=== PATIENT | female | born 1950 | race Caucasian/White ===

== ENCOUNTER 2018-05-21 20:40 | Inpatient (IN) | payer OTHER ==
[2018-05-21] MEDS ORDERED: NA CHLORIDE 0.9% 1,000 ML ONE (20:50)
[2018-05-21] MEDS ORDERED: RSI MEDICATION KIT IV ONE (20:50)
[2018-05-21] MEDS ORDERED: NOREPINEPHRINE 4mg/D5W 250mL 4 MG/250 ML BAG IV ONE (21:34)
--- NOTE | 2018-05-21 21:35 | RAD REPORT ---
EXAM DESCRIPTION: CT - Head C Spine Cap Wo Con - 05/21/2018 9:07 pm TECHNIQUE: Computed axial tomography of the head and cervical spine was obtained. Coronal and sagitt al reconstruction was performed Computed axial tomography of the chest, abdomen and pelvis was obtained. Contrast was not requested. All CT scans are performed using dose optimization technique as appropriate and may include automated exposure control or mA/KV adjustment according to patient size. CLINICAL HISTORY: Head and neck injury with chest and abdominal pain status post fall COMPARISON: 2013 CT chest FINDINGS: An intracranial bleed is not seen. The ventricles are normal in caliber. No acute intracranial abnormality is noted. Fluid within the sinuses/mastoids is not seen. A cervical fracture is not seen. No dislocation is noted. The evaluation of mediastinum, kristen, vessels, solid organs and bowel are limited secondary to the lac k of contrast administration. A mediastinal hematoma is not noted. A pleural effusion is not seen. A lung contusion is not present. The liver,spleen, pancreas, adrenals,kidneys and bladder do not demonstrate a traumatic injury. Moderate to marked centrilobular emphysema. A gallstone is seen. The stomach is markedly distended Old compression fractures involve the L2 and L4 vertebral body. Moderate old compression fracture involves the T7 vertebral body. Moderate compression fracture invol ves the T8 vertebral body. Moderate to marked compression fracture involves the T9 vertebral body Balbuena catheter is present within the bladder. Endotracheal tube has its tip well above the catracho IMPRESSION: 1. No acute intracranial abnormality is seen. 2. A cervical fracture is not visualized. If patient continues have symptoms to suggest intracranial/ spinal cord pathology MRI be recommended 3. No traumatic abnormality involving the chest/abdomen/pelvis. 4. Marked gastric distention 5. Compression fractures involving the T8 and T9 vertebral bodies. Fracture line is not visualized. P erivertebral hematoma is not seen. These probably are not acute. However if the patient has clinical symptoms to suggest these are acute MRI would be recommended
--- NOTE | 2018-05-21 21:39 | RAD REPORT ---
EXAM DESCRIPTION: Fausto Single View05/21/2018 8:56 pm CLINICAL HISTORY: sob COMPARISON: November 2017 FINDINGS: Lungs are moderately hyperaerated. The lungs appear clear of acute infiltrate. The heart is normal size IMPRESSION: No acute abnormalities displayed
[2018-05-21] MEDS ORDERED: PROPOFOL 1,000 MG/100 ML VIAL IV ONE (21:48)
[2018-05-21 22:08] LABS: Blood Gas Oxyhemoglobin 97.4 % (94-97); Blood O2 Saturation 99.4 % (92-98.5)
[2018-05-21 22:34] LABS: Urine Blood 2+ (NEG); Urine Glucose NEGATIVE (NEG); Urine Protein 3+ (NEG); Urine Specific Gravity >1.030 (1.005-1.030)
[2018-05-21 22:45] LABS: Absolute Lymphocytes (CBC) 0.3 K/uL (0.7-4.9); Absolute Monocytes 2.1 K/uL (0.1-1.3); Absolute Neutrophil 15.5 K/uL (1.8-8.0); Basophils % 0.2 % (0-1.3); Eosinophils % 0.1 % (0-4.4); Hematocrit 45.7 % (36.0-45.0); Lymphocytes % 1.6 % (15.3-44.8); MCH 30.7 pg (27.0-35.0); MCV 91.6 fL (80-100); MPV 8.4 fL (7.6-11.3); Monocytes % 11.5 % (3.3-12.3); RBC Red Blood Cell Count 4.99 M/uL (3.86-4.86)
[2018-05-21 22:49] LABS: Protime INR 1.39
[2018-05-21] MEDS ORDERED: METHYLPREDNISOLONE 125 MG INJ ONE (22:54)
[2018-05-21] MEDS ORDERED: LEVALBUTEROL 1.25 MG/3 ML NEB ONE (23:08)
[2018-05-21 23:13] LABS: Albumin 2.8 g/dL (3.4-5.0); Bilirubin Direct 0.7 mg/dL (0-0.2); Bilirubin Total 1.4 mg/dL (0.2-1.0); Protein, Total 5.6 g/dL (6.4-8.2); Troponin (Emerg Dept Use Only) 0.21 ng/mL (0.0-0.045)
[2018-05-21 23:14] LABS: Blood Morphology Comment NOT SEEN (NOT SEEN); Platelet Estimate ADEQ; Urine White Blood Cell Casts OK
[2018-05-21 23:16] LABS: CKMB Creatine Kinase MB 26.2 ng/mL (0.3-3.6)
[2018-05-21] MEDS ORDERED: PIPER/TAZO/NS 3.375gm 3.375 GM/100 ML BAG ONE (23:32)
[2018-05-21] MEDS ORDERED: VANCOMYCIN 1 GM/250 ML BAG ONE (23:32)
--- NOTE | 2018-05-21 23:51 | ER ---
Nurse's Notes [facility] Name: Chica Guerrero Age: 68 yrs Sex: Female : 1950 Arrival Date: 05/21/2018 Time: 20:41 Bed 4 Private MD: Diagnosis: Rhabdomyolysis;Acute respiratory failure;Dehydration;Altered mental status, unspecified;Hypothermia;Hypotension;Sepsis;Wedge compression fracture of T7-T8 vertebra;Wedge compression fracture of T9-T10 vertebra Presentation: 05/21 20:41 Presenting complaint: EMS states: they were toned out for report of pt found down at bb home and altered mental status. Transition of care: patient was not received from another setting of care. Onset of symptoms is unknown. Risk Assessment: Do you want to hurt yourself or someone else? Patient reports no desire to harm self or others. Initial Sepsis Screen: Does the patient meet any 2 criteria? Yes Does the patient have a suspected source of infection? Yes: Other: hypoxia/pneumonia If YES to both, name of provider notified: Forest Marie MD. Care prior to arrival: IV initiated. 20 GA, in the right antecubital area. 20:41 Method Of Arrival: EMS: [facility] 20:41 Acuity: GEORGE 1 Triage Assessment: 20:57 General: Appears unresponsive, pale, cool to touch. Behavior is unresponsive. Pain: bb Unable to use pain scale. Patient is unresponsive. Neuro: Level of Consciousness is unresponsive, Oriented to none. Cardiovascular: Heart tones S1 S2 present. Respiratory: Respiratory effort is shallow, weak, Breath sounds are clear in left upper lobe and left lower lobe Breath sounds are absent in right upper lobe, right middle lobe and right lower lobe. GI: Abdomen is flat. Derm: Skin is dry, Skin is pale, Skin temperature is cold. Historical: - Allergies: 21:10 Unable to obtain; bb - Home Meds: 21:10 flurazepam 30 mg Oral cap 1 cap once daily [Active]; primidone 50 mg Oral tab [Active]; bb prednisone 10 mg Oral tab 1 tab 3 times per day [Active]; alendronate 70 mg oral tab 1 tab once wkly [Active]; - Immunization history:: Adult Immunizations unknown. - Social history:: Smoking status: Patient uses tobacco products, family reports pt smoke a lot.. - Ebola Screening: : Patient negative for fever greater than or equal to 101.5 degrees Fahrenheit, and additional compatible Ebola Virus Disease symptoms. - Family history:: not pertinent. - Hospitalizations: : No recent hospitalization is reported. Screenin:04 Abuse screen: unknown. Nutritional screening: unknown. Tuberculosis screening: unknown. bb Fall Risk Fall in past 12 months (25 points). Secondary diagnosis (15 points) IV access (20 points). Ambulatory Aid- None/Bed Rest/Nurse Assist (0 pts). Gait- Impaired (20 pts.). Mental Status- Overestimates/Forgets Limitations (15 pts.). Total Benito Fall Scale indicates High Risk Score (45 or more points). Fall prevention measures have been instituted. Side Rails Up X 2 Frequent Obs/Assessments Occuring. Assessment: 20:43 General: Appears distressed, Behavior is unresponsive. Pain: Unable to use pain scale. jd3 Patient is unresponsive. Neuro: Level of Consciousness is unresponsive. Cardiovascular: Heart tones S1 S2 present Capillary refill is sluggish Rhythm is regular. 20:43 Respiratory: Airway is patent Respiratory effort is shallow, weak, Respiratory pattern jd3 is symmetrical, Breath sounds are diminished. GI: Abdomen is round non-distended. : No signs and/or symptoms were reported regarding the genitourinary system. EENT: No signs and/or symptoms were reported regarding the EENT system. Derm: Skin is intact, Skin is dry, Skin is pale, Skin temperature is cold. Musculoskeletal: Range of motion: pt responsive. 20:46 Reassessment: Patient and/or family updated on plan of care and expected duration. Pain jd3 level reassessed. ET tube placed by Dr. Marie. 21:00 Reassessment: Patient and/or family updated on plan of care and expected duration. Pain jd3 level reassessed. in CT scan. bear hugger blanket applied to pt. 21:15 Respiratory: Airway is patent pt on vent. Breath sounds are clear bilaterally. jd3 21:15 Reassessment: Patient and/or family updated on plan of care and expected duration. Pain jd3 level reassessed. provider notified of dropping blood pressure, set up for central line placement. 21:30 Reassessment: Patient and/or family updated on plan of care and expected duration. Pain jd3 level reassessed. central line placed by Dr. Marie. 22:00 Reassessment: No changes from previously documented assessment. Patient and/or family jd3 updated on plan of care and expected duration. Pain level reassessed. 22:30 Reassessment: No changes from previously documented assessment. Patient and/or family jd3 updated on plan of care and expected duration. Pain level reassessed. pt resting in bed, on vent, fluids infusing per orders, nurse bedside monitoring vitals. 22:53 Reassessment: hannah Guerrero [phone]. reports wanting to be called before any jd3 transfer or hospitalization. 23:00 Reassessment: No changes from previously documented assessment. Patient and/or family jd3 updated on plan of care and expected duration. Pain level reassessed. 23:30 Reassessment: Patient appears in no apparent distress at this time. Patient and/or jd3 family updated on plan of care and expected duration. Pain level reassessed. pt resting in bed with ET tube in place, on vent, with fluids running as ordered, nurse at bedside monitoring drips and vitals. 05/22 00:00 Reassessment: Patient appears in no apparent distress at this time. No changes from jd3 previously documented assessment. Patient and/or family updated on plan of care and expected duration. Pain level reassessed. 00:30 Reassessment: Patient appears in no apparent distress at this time. No changes from jd3 previously documented assessment. Patient and/or family updated on plan of care and expected duration. Pain level reassessed. 01:00 Reassessment: Patient appears in no apparent distress at this time. No changes from jd3 previously documented assessment. Patient and/or family updated on plan of care and expected duration. Pain level reassessed. pt admitted to ICU room 3. Vital Signs: 05/21 20:43 Pulse Ox 77% on 4 lpm NC; bb 20:43 BP 104 / 61; Pulse 98; Resp 15 A; Temp 95.6; Pulse Ox 96% on ETT vent; Weight 49.9 kg bb (R); 21:22 BP 68 / 56; Pulse 74; Resp 15; Temp 95.2(C); jd3 21:30 BP 101 / 70; Pulse 96; Resp 18 A; Temp 95.2(C); Pulse Ox 94% on ETT vent; jd3 21:45 BP 173 / 63; Pulse 103; Resp 17 A; Temp 94.6(C); Pulse Ox 100% on ETT vent; jd3 22:00 BP 155 / 51; Pulse 108; Resp 16 A; Temp 94(C); Pulse Ox 100% on ETT vent; jd3 22:15 BP 80 / 65; Pulse 97; Resp 18 A; Temp 94.0(C); Pulse Ox 100% on ETT vent; jd3 22:30 BP 95 / 54; Pulse 94; Resp 18 A; Temp 94.8(C); Pulse Ox 100% on ETT vent; jd3 22:35 BP 104 / 53; Pulse 95; Resp 18 A; Temp 95(C); Pulse Ox 100% on ETT vent; jd3 22:45 BP 89 / 56; Pulse 96; Resp 18 A; Temp 95.5(C); Pulse Ox 100% on ETT vent; jd3 23:00 BP 94 / 81; Pulse 98; Resp 18 A; Temp 96.4(C); Pulse Ox 100% on ETT vent; jd3 23:20 BP 82 / 67; Pulse 104; Resp 18 A; Temp 97.5(C); Pulse Ox 100% on ETT vent; jd3 23:30 BP 82 / 63; Pulse 106; Resp 18 A; Temp 97.7(C); Pulse Ox 100% on ETT vent; jd3 23:40 BP 81 / 56; Pulse 108; Resp 18 A; Temp 98.0(C); Pulse Ox 100% on ETT vent; jd3 23:50 BP 108 / 53; Pulse 102; Resp 18 A; Temp 98.6(C); Pulse Ox 100% on ETT vent; jd3 05/22 00:00 BP 110 / 66; Pulse 102; Resp 18 A; Temp 98.6(C); Pulse Ox 100% on ETT vent; jd3 00:30 BP 112 / 63; Pulse 108; Resp 18 A; Temp 100.1(C); Pulse Ox 100% on ETT vent; jd3 05/21 20:43 Dr Marie notified pt's sats dropping respiratory notified for intubation bb [place] Coma Score: 23:51 Eye Response: to pain(2). Verbal Response: incomprehensible(2). Motor Response: rn withdraws from pain(4). Total: 8. ED Course: 20:41 Patient arrived in ED. bb 20:43 Arm band placed on. bb 20:44 Balbuena cath inserted, using sterile technique, 16 Fr., by ED staff, balloon inflated, to bb gravity drainage, urine specimen collected. Patient tolerated well. 20:45 Inserted saline lock: 20 gauge in left antecubital area, using aseptic technique. bb ,using aseptic technique. by Ac Torre RN. 20:46 Patient has correct armband on for positive identification. Bed in low position. Call bb light in reach. Side rails up X2. ekg monitor on. Pulse ox on. NIBP on. Warm blanket given. 20:46 Assisted provider with intubation using 7.5 mm ETT via oral route. ET tube secured at bb 22cm at the teeth. Set up intubation tray. Intubated by Forest Marie MD Placement verified by CXR, CO2 detector w/ + color change, auscultating bilateral breath sounds, Patient tolerated well. 20:51 Forest Marie MD is Attending Physician. rn 20:56 Chest Single View XRAY In Process Unspecified. EDMS 20:57 Triage completed. bb 21:07 CT Traumagram (Head C Spine CAP wo con) In Process Unspecified. EDMS 21:55 Ac Torre, EDWARD is Primary Nurse. jd3 23:17 Notified ED physician of a critical lab result(s). Cl[place] 80, CPK 1334, CKMB 26.2, bb Lactate 2.4. Dr Marie notified. 23:49 Bryan Chavez MD is Hospitalizing Provider. rn 05/22 01:09 Patient admitted, IV remains in place. jd3 Administered Medications: 05/21 20:45 Drug: Lidocaine 100 mg Route: IVP; Site: right antecubital; bb 21:45 Follow up: Response: No adverse reaction bb 20:48 Drug: Etomidate 20 mg Route: IVP; Site: right antecubital; bb 05/22 00:26 Follow up: Response: No adverse reaction jd3 05/21 20:48 Drug: Succinylcholine 100 mg Route: IVP; Site: right antecubital; bb 05/22 00:26 Follow up: Response: No adverse reaction jd3 05/21 20:50 Drug: NS 0.9% 500 ml Route: IV; Rate: bolus; Site: right antecubital; bb 05/22 00:26 Follow up: Response: No adverse reaction; IV Status: Completed infusion j 05/21 21:30 Drug: Levophed (4 mg/250 mL D5W 4 mcg/min Route: IV; Rate: calculated rate; Site: right jd3 femoral; 05/22 00:27 Follow up: Response: No adverse reaction; IV Status: Infusion continued upon admission j 05/21 22:16 Drug: NS 0.9% 1000 ml Route: IV; Rate: 125 ml/hr; Site: right femoral; jd3 05/22 00:27 Follow up: Response: No adverse reaction; IV Status: Order to discontinue infusion j 05/21 22:52 Drug: SOLU-Medrol 125 mg Route: IVP; Site: right femoral; jd3 23:37 Follow up: Response: No adverse reaction jd3 23:18 Drug: Xopenex (3) 1.25 mg {Note: Administered by RT..} Route: Inhalation; j 05/22 00:28 Follow up: Response: No adverse reaction j 05/21 23:36 Drug: Zosyn 3.375 grams Route: IVPB; Infused Over: 60 mins; Site: right femoral; jd3 05/22 00:28 Follow up: IV Status: Infusion continued upon admission jd3 00:20 Drug: D5-1/2 NS with KCl 20 mEq/L 1000 ml Route: IV; Rate: 100 ml/hr; Site: right jd3 femoral; 00:28 Follow up: IV Status: Infusion continued upon admission jd3 00:21 Drug: Aspirin Suppository 300 mg Route: LA; jd3 00:28 Follow up: Response: No adverse reaction jd3 00:26 Drug: Tylenol Suppository 650 mg Route: LA; jd3 00:29 Follow up: Response: No adverse reaction jd3 00:35 Drug: vancoMYCIN 1 grams Route: IVPB; Infused Over: 2 hrs; Site: left antecubital; jd3 00:35 Follow up: Response: No adverse reaction; IV Status: Infusion continued upon admission j Outcome: 05/21 23:50 Decision to Hospitalize by Provider. rn 05/22 01:07 Patient left the ED. jd3 01:07 Admitted to ICU accompanied by nurse, accompanied by tech, via stretcher, room 3, with jd3 oxygen, on monitor, with chart, Report called to Bedside report given to Carmen LEON. 01:07 Condition: stable 01:07 Instructed on the need for admit. Signatures: Dispatcher [employer] Amelia Stern RN RN bb Nieto, Roman, MD MD rn Davies, Jonathon, RN RN jd3 [place]brook, MyKena mw2 Corrections: (The following items were deleted from the chart) 05/21 23:18 20:43 Cardiovascular: Heart tones S1 S2 present Rhythm is regular jd3 jd3 23:23 21:30 Reassessment: central line placed by Dr. Marie. jd3 jd3 : 21:30 Reassessment: Patient and/or family updated on plan of care and expected jd3 duration. Pain level reassessed. jd3 : 21:30 Respiratory: Airway is patent pt on vent. Breath sounds are clear bilaterally. [id number] 23: 21:00 Reassessment: Patient and/or family updated on plan of care and expected jd3 duration. Pain level reassessed. ET tube placed by Dr. Marie. jd3 23:47 22:10 BP 138 / 126; Pulse 102bpm; Resp 18bpm; Pulse Ox 100% ET / Ventilator; Temp jd3 93.9F; mw2 05/22 00:02 05/21 21:00 Reassessment: Patient and/or family updated on plan of care and expected jd3 duration. Pain level reassessed. in CT scan. jd3 05/22 00:02 05/21 21:15 Reassessment: Patient and/or family updated on plan of care and expected jd3 duration. Pain level reassessed. provider notified of dropping blood pressure, set up for central line placement. jd3 05/22 01: 01:00 Reassessment: Patient appears in no apparent distress at this time. No changes jd3 from previously documented assessment. Patient and/or family updated on plan of care and expected duration. Pain level reassessed. jd3
--- NOTE | 2018-05-21 23:52 | EDPHYS ---
Physician Documentation [facility] Name: Chica Guerrero Age: 68 yrs Sex: Female : 1950 Arrival Date: 05/21/2018 Time: 20:41 Bed 4 Private MD: ED Physician Forest Marie HPI: 05/21 23:51 This 68 yrs old Female presents to ER via EMS with complaints of Altered rn Mental Status. 23:51 The patient presents with decreased responsiveness. Onset: The symptoms/episode rn began/occurred at an unknown time. Possible causes: unknown. Current symptoms: In the emergency department the patient's symptoms have worsened. It is unknown whether or not the patient has had similar symptoms in the past. Family and EMS state that she has not been doing well for a few days, + several falls recently, last one today, patient more alert for EMS, but got more altered en route, and difficult to arouse when here. Family reports recent paranoia, falls, weakness, tremors and shuffling gait. Patient reported only back pain to EMS. Found on ground, unable to get up. . Historical: - Allergies: 21:10 Unable to obtain; bb - Home Meds: 21:10 flurazepam 30 mg Oral cap 1 cap once daily [Active]; primidone 50 mg Oral tab [Active]; bb prednisone 10 mg Oral tab 1 tab 3 times per day [Active]; alendronate 70 mg oral tab 1 tab once wkly [Active]; - Immunization history:: Adult Immunizations unknown. - Social history:: Smoking status: Patient uses tobacco products, family reports pt smoke a lot.. - Ebola Screening: : Patient negative for fever greater than or equal to 101.5 degrees Fahrenheit, and additional compatible Ebola Virus Disease symptoms. - Family history:: not pertinent. - Hospitalizations: : No recent hospitalization is reported. ROS: 23:51 Unable to obtain ROS due to altered mental status, obtunded state. rn Exam: 23:51 Constitutional: Thin female, minimally responsive to painful stimuli with rn incomprehensible speech. Head/Face: Normocephalic, atraumatic. Eyes: Pupils 4mm, reactive ENT: dry MM Neck: in ccollar, no midline tenderness Cardiovascular: tachycardic, regular, no murmur Respiratory: coarse breath sounds on left side, diminished and near absent on right side, no contusions or ecchymosis, no crepitus Abdomen/GI: soft, non tender and non-distended Back: No stepoff or deformities Skin: Warm, dry, no evidence of cellulitis. MS/ Extremity: Dimnished pulses in extremities, central pulses present Neuro: Some response to painful stimuli, incomprehensible speech Vital Signs: 20:43 Pulse Ox 77% on 4 lpm NC; bb 20:43 BP 104 / 61; Pulse 98; Resp 15 A; Temp 95.6; Pulse Ox 96% on ETT vent; Weight 49.9 kg bb (R); 21:22 BP 68 / 56; Pulse 74; Resp 15; Temp 95.2(C); jd3 21:30 BP 101 / 70; Pulse 96; Resp 18 A; Temp 95.2(C); Pulse Ox 94% on ETT vent; jd3 21:45 BP 173 / 63; Pulse 103; Resp 17 A; Temp 94.6(C); Pulse Ox 100% on ETT vent; jd3 22:00 BP 155 / 51; Pulse 108; Resp 16 A; Temp 94(C); Pulse Ox 100% on ETT vent; jd3 22:15 BP 80 / 65; Pulse 97; Resp 18 A; Temp 94.0(C); Pulse Ox 100% on ETT vent; jd3 22:30 BP 95 / 54; Pulse 94; Resp 18 A; Temp 94.8(C); Pulse Ox 100% on ETT vent; jd3 22:35 BP 104 / 53; Pulse 95; Resp 18 A; Temp 95(C); Pulse Ox 100% on ETT vent; jd3 22:45 BP 89 / 56; Pulse 96; Resp 18 A; Temp 95.5(C); Pulse Ox 100% on ETT vent; jd3 23:00 BP 94 / 81; Pulse 98; Resp 18 A; Temp 96.4(C); Pulse Ox 100% on ETT vent; jd3 23:20 BP 82 / 67; Pulse 104; Resp 18 A; Temp 97.5(C); Pulse Ox 100% on ETT vent; jd3 23:30 BP 82 / 63; Pulse 106; Resp 18 A; Temp 97.7(C); Pulse Ox 100% on ETT vent; jd3 23:40 BP 81 / 56; Pulse 108; Resp 18 A; Temp 98.0(C); Pulse Ox 100% on ETT vent; jd3 23:50 BP 108 / 53; Pulse 102; Resp 18 A; Temp 98.6(C); Pulse Ox 100% on ETT vent; jd3 05/22 00:00 BP 110 / 66; Pulse 102; Resp 18 A; Temp 98.6(C); Pulse Ox 100% on ETT vent; jd3 00:30 BP 112 / 63; Pulse 108; Resp 18 A; Temp 100.1(C); Pulse Ox 100% on ETT vent; jd3 05/21 20:43 Dr Marie notified pt's sats dropping respiratory notified for intubation bb Denise Coma Score: 23:51 Eye Response: to pain(2). Verbal Response: incomprehensible(2). Motor Response: rn withdraws from pain(4). Total: 8. Procedures: 23:47 Intubation: Ventilated with 100% NRB prior to procedure. 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 Intubated orally using # 4 Nehemias blade with 7.5 mm ETT. was successful on first attempt. Cricoid pressure applied during procedure. Tube secured at right side of mouth measured 22 cm at lip. Placement verified by CXR, CO2 detector with (+) color change, auscultating bilateral breath sounds, O2 saturation after procedure was 90 %. Patient tolerated well. Central Line: the site was prepped with Betadine, in sterile fashion, a triple lumen catheter was inserted, in the right femoral vein, in 1 attempts. placement was verified, by blood return, the site was dressed with Tegaderm, using sterile technique, the patient tolerated the procedure, well. MDM: 20:51 Patient medically screened. 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 Core temp normalizing with active warming. Unclear trigger of event but patient seems to have been laying on floor for some time leading to culmination of findings we are seeing today. . 23:51 Differential Diagnosis: CVA, electrolyte abnormality, hypoglycemia, intracranial bleed, rn pneumonia, sepsis, UTI, volume depletion. Data reviewed: vital signs, nurses notes, lab test result(s), EKG, radiologic studies, CT scan, plain films, and as a result, I will admit patient. Counseling: I had a detailed discussion with the patient and/or guardian regarding: the historical points, exam findings, and any diagnostic results supporting the discharge/admit diagnosis, lab results, radiology results, the need for further work-up and treatment in the hospital. Admission orders: after a detailed discussion of the patient's condition and case, the admit orders are written by me. 05/21 20:52 Order name: ABG; Complete Time: 22:22 05/21 20:52 Order name: Basic Metabolic Panel; Complete Time: 23:39 05/21 20:52 Order name: Blood Culture Adult (2) 05/21 20:52 Order name: CBC with Diff; Complete Time: 23:39 05/21 20:52 Order name: Ckmb; Complete Time: 23:39 05/21 20:52 Order name: CPK; Complete Time: 23:39 05/21 20:52 Order name: Lactate; Complete Time: 23:39 05/21 20:52 Order name: LFT's; Complete Time: 23:39 05/21 20:52 Order name: Lipase; Complete Time: 23:39 05/21 20:52 Order name: Procalcitonin; Complete Time: 23:39 05/21 20:52 Order name: Protime (+inr); Complete Time: 23:04 05/21 20:52 Order name: Ptt, Activated; Complete Time: 23:04 05/21 20:52 Order name: Troponin (emerg Dept Use Only); Complete Time: 23:39 05/21 20:52 Order name: Urine Microscopic Only; Complete Time: 00:33 05/21 20:47 Order name: Chest Single View XRAY; Complete Time: 21:43 em1 05/21 20:52 Order name: Urine Culture 05/21 20:52 Order name: CT Traumagram (Head C Spine CAP wo con); Complete Time: 21:43 05/21 21:27 Order name: Glucose, Ancillary Testing; Complete Time: 21:31 EDIA 05/21 21:31 Order name: Flu; Complete Time: 23:39 rn 05/21 22:30 Order name: Urine Dipstick--Ancillary (enter results); Complete Time: 22:46 em1 05/21 23:14 Order name: CBC Smear Scan; Complete Time: 23:39 EDMS 05/21 20:52 Order name: Accucheck; Complete Time: 21:56 rn 05/21 20:52 Order name: Cardiac monitoring; Complete Time: 21:08 rn 05/21 20:52 Order name: EKG - Nurse/Tech; Complete Time: 21:57 rn 05/21 20:52 Order name: IV Saline Lock - Large Bore; Complete Time: 21:08 rn 05/21 20:52 Order name: Labs collected and sent; Complete Time: 22:45 rn 05/21 20:52 Order name: O2 Per Protocol; Complete Time: 21:08 rn 05/21 20:52 Order name: O2 Sat Monitoring; Complete Time: 21:07 rn 05/21 20:52 Order name: Urine Dipstick-Ancillary (obtain specimen); Complete Time: 21:07 05/22 00:04 Order name: CONS Physician Consult EDIA Administered Medications: 20:45 Drug: Lidocaine 100 mg Route: IVP; Site: right antecubital; 21:45 Follow up: Response: No adverse reaction 20:48 Drug: Etomidate 20 mg Route: IVP; Site: right antecubital; 05/22 00:26 Follow up: Response: No adverse reaction [facility] 05/21 20:48 Drug: Succinylcholine 100 mg Route: IVP; Site: right antecubital; 05/22 00:26 Follow up: Response: No adverse reaction [facility] 05/21 20:50 Drug: NS 0.9% 500 ml Route: IV; Rate: bolus; Site: right antecubital; 05/22 00:26 Follow up: Response: No adverse reaction; IV Status: Completed infusion [facility] 05/21 21:30 Drug: Levophed (4 mg/250 mL D5W 4 mcg/min Route: IV; Rate: calculated rate; Site: right jd3 femoral; 05/22 00:27 Follow up: Response: No adverse reaction; IV Status: Infusion continued upon admission [facility] 05/21 22:16 Drug: NS 0.9% 1000 ml Route: IV; Rate: 125 ml/hr; Site: right femoral; jd3 05/22 00:27 Follow up: Response: No adverse reaction; IV Status: Order to discontinue infusion jd3 05/21 22:52 Drug: SOLU-Medrol 125 mg Route: IVP; Site: right femoral; jd3 23:37 Follow up: Response: No adverse reaction jd3 23:18 Drug: Xopenex (3) 1.25 mg {Note: Administered by RT..} Route: Inhalation; jd3 05/22 00:28 Follow up: Response: No adverse reaction jd3 05/21 23:36 Drug: Zosyn 3.375 grams Route: IVPB; Infused Over: 60 mins; Site: right femoral; jd3 05/22 00:28 Follow up: IV Status: Infusion continued upon admission jd3 00:20 Drug: D5-1/2 NS with KCl 20 mEq/L 1000 ml Route: IV; Rate: 100 ml/hr; Site: right jd3 femoral; 00:28 Follow up: IV Status: Infusion continued upon admission jd3 00:21 Drug: Aspirin Suppository 300 mg Route: VT; jd3 00:28 Follow up: Response: No adverse reaction jd3 00:26 Drug: Tylenol Suppository 650 mg Route: VT; jd3 00:29 Follow up: Response: No adverse reaction jd3 00:35 Drug: vancoMYCIN 1 grams Route: IVPB; Infused Over: 2 hrs; Site: left antecubital; jd3 00:35 Follow up: Response: No adverse reaction; IV Status: Infusion continued upon admission jd3 Disposition: 05/21 23:47 Critical Care:. rn Disposition: 05/21/18 23:50 Hospitalization ordered by Bryan Chavez for Inpatient Admission. Preliminary diagnosis are Rhabdomyolysis, Acute respiratory failure, Dehydration, Altered mental status, unspecified, Hypothermia, Hypotension, Sepsis, Wedge compression fracture of T7-T8 vertebra, Wedge compression fracture of T9-T10 vertebra. - Bed requested for Intensive Care Unit. - Status is Inpatient Admission. jd3 - Condition is Serious. - Problem is new. - Symptoms have improved. UTI on Admission? No Critical care time excluding procedures: 23:47 Critical care time: Bedside Care: 55 minutes, Consultation: 5 minutes, Family rn Intervention: 5 minutes. Total time: 65 minutes Signatures: Dispatcher [employer] Amelia Stern RN RN Forest Galvan MD MD rn Martinez, Eric em1 Ac Torre RN RN jd3 Corrections: (The following items were deleted from the chart) 05/22 00:19 05/21 23:50 Hospitalization Ordered by Bryan Chavez MD for Inpatient Admission. em1 Preliminary diagnosis is Rhabdomyolysis; Acute respiratory failure; Dehydration; Altered mental status, unspecified; Hypothermia; Hypotension; Sepsis. Bed requested for Intensive Care Unit. Status is Inpatient Admission. Condition is Serious. Problem is new. Symptoms have improved. UTI on Admission? No. 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 Preliminary diagnosis is Rhabdomyolysis; Acute respiratory failure; Dehydration; Altered mental status, unspecified; Hypothermia; Hypotension; Sepsis. Bed requested for Intensive Care Unit. Status is Inpatient Admission. Condition is Serious. Problem is new. Symptoms have improved. UTI on Admission? No. em1 01:07 00:34 05/21/2018 23:50 Hospitalization Ordered by Bryan Chavez MD for Inpatient jd3 Admission. Preliminary diagnosis is Rhabdomyolysis; Acute respiratory failure; Dehydration; Altered mental status, unspecified; Hypothermia; Hypotension; Sepsis; Wedge compression fracture of T7-T8 vertebra; Wedge compression fracture of T9-T10 vertebra. Bed requested for Intensive Care Unit. Status is Inpatient Admission. Condition is Serious. Problem is new. Symptoms have improved. UTI on Admission? No. rn
[2018-05-22] MEDS ORDERED: ASPIRIN 600 MG/SUPP PR ONE ×2 (00:14→00:18)
[2018-05-22] MEDS ORDERED: D5.45NS W/KCL 20MEQ 1,000 ML IV ONE (00:15)
[2018-05-22] MEDS ORDERED: ACETAMINOPHEN 650MG/RECT SUPP PR ONE (00:20)
[2018-05-22 00:25] LABS: Urine Bacteria <20 /HPF (<20)
[2018-05-22 00:26] LABS: Urine Culture Reflex Order NOT NEEDED
[2018-05-22] MEDS ORDERED: PIPER/TAZO/NS 2.25gm 2.25 GM/50 ML BAG IVPB SCH (00:30)
[2018-05-22] MEDS ORDERED: NOREPINEPHRINE 4mg/D5W 250mL 4 MG/250 ML BAG IV ONE (00:58)
[2018-05-22] MEDS ORDERED: PROPOFOL 1,000 MG/100 ML VIAL IV PRN (01:07)
[2018-05-22] MEDS ORDERED: ONDANSETRON 4 MG/2 ML VIAL IV PRN (01:07)
[2018-05-22] MEDS ORDERED: D5.45NS W/KCL 20MEQ 1,000 ML IV SCH (01:07)
[2018-05-22] MEDS: PIPER/TAZO/NS 2.25gm 2.25 GM/50 ML BAG IVPB SCH ×5 (01:43→23:15)
[2018-05-22] MEDS ORDERED: VANCOMYCIN 1GM/D5W 1 GM/200 ML BAG IV ONE (02:00)
[2018-05-22 02:42] LABS: CKMB Creatine Kinase MB 17.1 ng/mL (0.3-3.6); Troponin I 0.24 ng/mL (0.0-0.045)
[2018-05-22] MEDS: KCL 20 MEQ/100 mL IVPB 20 MEQ/100 ML BAG IV SCH ×2 (04:22→05:31)
[2018-05-22 06:31] LABS: CKMB Creatine Kinase MB 8.8 ng/mL (0.3-3.6); Troponin I 0.16 ng/mL (0.0-0.045)
--- NOTE | 2018-05-22 07:15 | EKG ---
Test Date: 2018-05-21 Test Time: 23:28:30 Refrigeration Mechanic: AURORA MEASUREMENT RESULTS: Intervals: Rate: 105 AK: 116 QRSD: 88 QT: 358 QTc: 473 [place]: P: 82 AK: 116 QRS: 85 T: 76 INTERPRETIVE STATEMENTS: Sinus tachycardia Right atrial enlargement Borderline ECG Compared to ECG 05/21/2018 21:12:53 Sinus rhythm no longer present Electronically Signed On 05-22-18 07:14:17 MIX TECHNICIAN by Aleksander Shin
--- NOTE | 2018-05-22 07:15 | EKG ---
Test Date: 2018-05-21 Test Time: 21:12:53 Informatics Pharmacist: EAGLE MEASUREMENT RESULTS: Intervals: Rate: 80 RI: 122 QRSD: 106 QT: 402 QTc: 463 [place]: P: 84 RI: 122 QRS: 86 T: 82 INTERPRETIVE STATEMENTS: Normal sinus rhythm Biatrial enlargement Abnormal ECG No previous ECG available for comparison Electronically Signed On 05-22-18 07:14:21 DRY KILN OPERATOR HELPER by Aleksander Shin
[2018-05-22] MEDS: FENTANYL CITR 100 MCG/2 ML IV PRN ×3 (07:49→21:25)
[2018-05-22] MEDS ORDERED: NOREPINEPHRINE 4 MG in D5W 250 ML IV PRN (08:27)
[2018-05-22] MEDS: NA CHLORIDE 0.9% 250 ML IV PRN ×2 (08:40→17:53)
[2018-05-22] MEDS: FAMOTIDINE 20 MG/2 ML VIAL IV SCH ×2 (08:42→21:16)
[2018-05-22] MEDS: NA CHLORIDE 0.9% 1,000 ML ONE ×2 (08:43→08:45)
[2018-05-22] MEDS ORDERED: D5 0.9 NS 1,000 ML IV SCH (10:00)
[2018-05-22] MEDS ORDERED: NA CHLORIDE 0.9% 1,000 ML IV SCH (10:00)
[2018-05-22 10:07] LABS: Absolute Lymphocytes (CBC) 0.6 K/uL (0.7-4.9); Absolute Monocytes 1.8 K/uL (0.1-1.3); Absolute Neutrophil 10.6 K/uL (1.8-8.0); Basophils % 0.2 % (0-1.3); Hematocrit 42.5 % (36.0-45.0); Lymphocytes % 4.3 % (15.3-44.8); MCH 30.9 pg (27.0-35.0); MCV 90.4 fL (80-100); MPV 8.8 fL (7.6-11.3); Monocytes % 14.1 % (3.3-12.3)
[2018-05-22 10:17] LABS: Potassium 3.7 mmol/L (3.5-5.1)
[2018-05-22 10:26] LABS: Uric Acid 8.9 mg/dL (2.6-6.0)
[2018-05-22 11:36] LABS: Urine Appearance TURBID; Urine Blood 2+ (NEG); Urine Color DK YELLOW; Urine Glucose NEGATIVE (NEG); Urine Protein 1+ (NEG); Urine Specific Gravity 1.025 (1.005-1.030); Urine pH 5.5 (5.0-7.0)
[2018-05-22 11:45] LABS: Urine Bilirubin NEGATIVE (NEG)
[2018-05-22 11:46] LABS: Urine Microscopic Reflex ORDER UMIC
[2018-05-22] MEDS ORDERED: ETOMIDATE 20 MG/10 ML VIAL IV ONE (11:57)
[2018-05-22] MEDS ORDERED: SUCCINYLCHOLINE 20 MG/ML (10 ML) IV ONE (11:57)
[2018-05-22 12:04] LABS: Urine Bacteria 20-50 /HPF (<20)
[2018-05-22 12:07] LABS: Urine Culture Reflex Order REFLEXED
[2018-05-22] MEDS ORDERED: DOPAMINE 400 MG/250ML D5W PREMIX IV ONE (12:17)
[2018-05-22] MEDS ORDERED: SODIUM CHL 0.9% 1000 ML BAG IV ONE (12:17)
[2018-05-22] MEDS ORDERED: KCL 20 MEQ/100 mL IVPB 20 MEQ/100 ML BAG IV SCH (13:00)
--- NOTE | 2018-05-22 13:55 | CON ---
Date of Consultation: 05/22/2018 Reason For Consultation: Elevated BUN and creatinine, hyponatremia, fluid management. History Of Present Illness: This is a pleasant 68-year-old female. All of the information has been obtained from the record, as the patient is being intubated. The patient's brother is by the bedside , the son is not by the bedside. The patient is known to have history of COPD, osteoporosis, tremor, no seizure. The patient apparently found with recurrent fall and altered mental status, for that re leoncion approached to the emergency room. In the emergency room found to have low blood pressure and sh ock with hyponatremia. For that reason, we have been consulted. The patient was started on Levophed , then was weaned off, receive a couple of bolus. Currently blood pressure maintained on 90 with Lev ophed of 2 mcg. As per the brother, the patient is not taking any nonsteroidal, no IV contrast, no s teroid dependent, not on home oxygen. At home, the patient had been on alendronate and seizure medication for her tremor. Past Medical History: Include, 1.Hypertension. 2.Osteoporosis. 3.COPD. Allergy: None obtainable. Family History: Positive for hypertension. Surgical History: None obtainable. Home Medications: Include, 1.Alendronate. 2.Mysoline. 3.Breathing treatment. Current Medications: In the hospital include Zosyn, fentanyl, sedation medication with vancomycin. Review of Systems: Not obtainable. Physical Examination: Vital Signs: Blood pressure 97/67, pulse of 79, afebrile. Chest: Clear to auscultation. Heart: S1, S2. Regular. Abdomen: Soft, nontender. Extremities: No edema. Laboratory Data: WBC 13, H and H 14.5/42.5, platelets 242. Sodium 123, potassium of 3, bicarb 32, chloride 80, BUN 51, creatinine 1.3, GFR of 41, calcium 7.3, C K 1334, albumin 2.8. Cortisol level is still pending. CK-MB of 26. Imaging Data: CT of abdomen and pelvis with spine show compression fractures, hydronephrosis has bee n ruled out. Reviewing the record for the patient back in November, kidney function was within normal limits and normal sodium at 136. Assessment And Plan: 1.Acute kidney injury secondary to rhabdo/poor perfusion acute tubular necrosis/toxic acute tubular necrosis. Obstruction has been ruled out. 2.I am going to go ahead and start the patient on IV hydration, and we will monitor the patient clos pavithra. We will start the patient on normal saline at 100 p.o. I am going to go ahead and send for sta t chemistry, and we will send for renal ultrasound, and we will continue close monitoring for the I's and O's. 3.I am going to discontinue alendronate, as it can contribute to her acute and chronic kidney diseas e. 4.Hyponatremia secondary to depletional, symptomatic with fold. I am going to start the patient on normal saline. We will repeat the lab, and we will adjust depending on that. 5.Urosepsis with septic shock. The patient was started on vanco and Zosyn. We will follow up cultu re. 6.Altered mental status, possible secondary to seizure/hyponatremia. We are going to start the reji ent on normal saline at 100 mL per hour. If her kidney function/hyponatremia did not correct at that time, we will decide about 3%, it will be monitored. 7.Rhabdomyolysis secondary to seizure. I do not see any need for sodium bicarb drip for the time be ing. We will continue with hydration. 8.Hypokalemia. We will supplement. Thank you Dr. Parada for allowing us to participate in the care of your patient. Time spent, 65 minutes. RAMANDEEP Voice ID: [id number] Report ID: [id number]
[2018-05-22] MEDS: LORazepam 2 MG/ML VIAL IV PRN ×2 (14:25→23:16)
[2018-05-22] MEDS: JEVITY 1.2 CAL LIQUID 1,000 ML BOT FT SCH (14:40)
[2018-05-22 14:50] LABS: Potassium 3.5 mmol/L (3.5-5.1); Uric Acid 8.7 mg/dL (2.6-6.0)
[2018-05-22 15:45] LABS: Urine Appearance CLOUDY; Urine Blood 2+ (NEG); Urine Color YELLOW; Urine Glucose NEGATIVE (NEG); Urine Protein 1+ (NEG); Urine Specific Gravity 1.025 (1.005-1.030)
[2018-05-22 15:47] LABS: Urine Bilirubin NEG (NEG)
[2018-05-22 15:48] LABS: Urine Microscopic Reflex ORDER UMIC
[2018-05-22] MEDS: NA CHLORIDE 0.9% 1,000 ML IV SCH ×2 (16:00→17:51)
[2018-05-22 16:03] LABS: Urine Bacteria 20-50 /HPF (<20); Urine Culture Reflex Order NOT NEEDED
--- NOTE | 2018-05-22 18:55 | RAD REPORT ---
EXAM DESCRIPTION: US - Renal Ultrasound-Complete - 05/22/2018 6:37 pm CLINICAL HISTORY: SABRINA COMPARISON: Head C Spine Cap Wo Con dated 05/21/2018 FINDINGS: Both kidneys are echogenic. The right kidney measures 11.2 x 4.2 x 3.5 cm. No hydronephrosis. The left kidney measures 12.2 x 4.3 x 4.0 cm. Solid mass lesion suspected superior pole left kidney m easuring 3.5 x 3.5 cm. No hydronephrosis. The urinary bladder is incompletely distended without gross abnormality seen. Cholelithiasis is noted . IMPRESSION: A solid mass is suspected superior pole left kidney (3.5 x 3.5 cm) suspicious for carcin chun. Echogenic kidneys noted likely indicating underlying medical renal disease.
[2018-05-23 01:02] LABS: Urine Appearance CLEAR; Urine Bilirubin NEGATIVE (NEG); Urine Blood TRACE (NEG); Urine Color YELLOW; Urine Glucose 1+ (NEG); Urine Protein TRACE (NEG); Urine Specific Gravity 1.025 (1.005-1.030)
[2018-05-23 01:06] LABS: Urine Microscopic Reflex ORDER UMIC
[2018-05-23 01:34] LABS: Potassium 3.1 mmol/L (3.5-5.1)
[2018-05-23 01:42] LABS: Urine Bacteria <20 /HPF (<20); Urine Culture Reflex Order NOT NEEDED; Urine RBC <5 /HPF (NONE SEEN)
--- NOTE | 2018-05-23 04:24 | HP ---
Date of Admission: 05/21/2018 Chief Complaint: Unresponsive state. History Of Present Illness: A 68-year-old female, according to the family fell down a few days prior to admission. The patient however was not able to be contacted, so family members went to her home and found her unresponsive. She was brought to the emergency room where she was found to have respir atory failure and hypotension. The patient was intubated and transferred to ICU. No additional hist ory is available. The patient is known to me. She is known to have COPD secondary to smoking. Physical Examination: General: Revealed a comatose 68-year-old female, unresponsive, on ventilator. Vital Signs: Blood p ressure of 90/60, on Levophed; pulse 112, regular. HEENT: Pupils midsize. Neck: No JVD. Chest: Scattered wheezes. Heart: Mild tachycardia. Abdomen: Soft. Extremities: No edema. Laboratory Data: Admitting white count 17.9, hemoglobin 15.3. Blood gas; pH 7.25, pCO2 67. Sodium 123, potassium 3.0, BUN 51, creatinine 1.3. CPK 1334, troponin 0.21. [facility] scan of the abdomen, chest, neck, and head showed evidence of compression fract ure, probably old; otherwise, no acute injuries. Assessment: 1.Unresponsive state. 2.Respiratory failure. 3.Hypotension. 4.Possible septic state. 5.Renal failure. 6.Possible rhabdomyolysis, causing renal failure. Plan: IV fluids. Ventilatory support. Pulmonary and nephrology consultations as done. Continue IV antibiotics, started in the emergency room. LOLI/MEREDITH Voice ID: [id number]
[2018-05-23 05:38] LABS: Absolute Lymphocytes (CBC) 0.7 K/uL (0.7-4.9); Absolute Monocytes 1.8 K/uL (0.1-1.3); Absolute Neutrophil 9.6 K/uL (1.8-8.0); Arterial Blood Carboxyhemoglob 1.2 % (0-1.5); Basophils % 0.2 % (0-1.3); Blood Gas Oxyhemoglobin 94.1 % (94-97); Blood O2 Saturation 95.8 % (92-98.5); Hematocrit 39.3 % (36.0-45.0); Lymphocytes % 5.9 % (15.3-44.8); MCV 90.4 fL (80-100); MPV 8.9 fL (7.6-11.3); Monocytes % 14.9 % (3.3-12.3); RBC Red Blood Cell Count 4.35 M/uL (3.86-4.86)
[2018-05-23] MEDS: PIPER/TAZO/NS 2.25gm 2.25 GM/50 ML BAG IVPB SCH (06:20)
[2018-05-23] MEDS: NA CHLORIDE 0.9% 1,000 ML IV SCH ×3 (06:20→17:07)
[2018-05-23 06:34] LABS: Albumin 2.2 g/dL (3.4-5.0); Magnesium 2.2 mg/dL (1.8-2.4); Potassium 3.2 mmol/L (3.5-5.1); Uric Acid 5.2 mg/dL (2.6-6.0)
[2018-05-23] MEDS: FENTANYL CITR 100 MCG/2 ML IV PRN ×3 (06:54→20:46)
--- NOTE | 2018-05-23 07:39 | P.CNS ---
Date of Consult: 05/22/18 Reason for Consult: Respiratory failure patient on a ventilator Chief Complaint: Unresponsive History of Present Illness: Patient is 68 years of age no history available she was found unresponsive admitted currently on a ventilator unresponsive patient had rhabdomyolysis in compression fractures patient was also hypotensive renal insufficiency Allergies Unable to Assess Allergy (Unverified 05/22/18 00:26) Home Medications: Albuterol Sulfate [Albuterol Sulfate 0.083% Neb Soln] 2.5 mg IH QID 05/22/18 Alendronate Sodium [Fosamax] 70 mg PO EVERY 7TH DAY 05/22/18 Primidone [Mysoline *] 100 mg PO BID 05/22/18 - Past Medical/Surgical History -: Osteoporosis -: Possible essential tremors Review of Systems is unable to be obtained Physical Examination Temp Pulse Resp BP Pulse Ox 98.8 F 93 H 14 92/65 99 05/23/18 06:00 05/23/18 07:00 05/23/18 07:00 05/23/18 07:00 05/23/18 07:00 General: Unresponsive HEENT: Other (Patient has a neck collar) Respiratory: Clear to auscultation bilaterally, Diminished Cardiovascular: No edema, Regular rate/rhythm, Normal S1 S2 Gastrointestinal: Normal bowel sounds, Soft and benign - Problems (1) Respiratory failure Current Visit: Yes Status: Acute Plan: Patient is 68 years of age admitted with hypotension shock respiratory failure renal failure rhabdomyolysis she was found to be hypernatremic hypokalemic renal insufficiency elevated white count with a respiratory acidosis no evidence of infection in the urine no neck fracture she did have a compression fracture of T8 and T9 blood cultures so far negative continue with supportive therapy fluid boluses antibiotics possible wean and extubate then settings reviewed patient is on minimal oxygen Qualifiers: Chronicity: acute
[2018-05-23] MEDS: FAMOTIDINE 20 MG/2 ML VIAL IV SCH ×2 (08:25→20:47)
[2018-05-23 08:37] LABS: Hematocrit 39.2 % (36.0-45.0); MCH 31.2 pg (27.0-35.0); MCV 90.6 fL (80-100); MPV 8.6 fL (7.6-11.3); RBC Red Blood Cell Count 4.33 M/uL (3.86-4.86)
[2018-05-23] MEDS: LORazepam 2 MG/ML VIAL IV PRN ×2 (08:59→21:26)
[2018-05-23 09:07] LABS: Albumin 2.2 g/dL (3.4-5.0); Bilirubin Total 0.4 mg/dL (0.2-1.0); Potassium 3.1 mmol/L (3.5-5.1); Protein, Total 4.9 g/dL (6.4-8.2); Thyroid Stimulating Hormone 1.01 uIU/mL (0.360-3.740)
[2018-05-23] MEDS ORDERED: POTASSIUM PHOS IN 0.9 % NACL 15 MMOL/250 ML BAG IV ONE (10:26)
[2018-05-23 10:33] LABS: Magnesium 2.2 mg/dL (1.8-2.4)
[2018-05-23 10:52] LABS: Blood Morphology Comment NOT SEEN (NOT SEEN); Platelet Estimate ADEQ; Urine White Blood Cell Casts OK
[2018-05-23] MEDS: KCL 20 MEQ/100 mL IVPB 20 MEQ/100 ML BAG IV SCH ×2 (11:39→13:00)
[2018-05-23] MEDS: IPRATROPIUM BROM 0.5MG/2.5ML NEB SCH ×2 (13:16→19:46)
--- NOTE | 2018-05-23 13:46 | ECHO ---
HEIGHT: 5 ft 1 in WEIGHT: 105 lb 0 oz DATE OF STUDY: 05/23/[address]: Vlad Rodriguez MD 2-DIMENSIONAL: YES M.MODE: YES DOPPLER: YES COLOR FLOW: YES TDS: NO PORTABLE: YES DEFINITY: NO BUBBLE STUDY: NO DIAGNOSIS: RESPIRATORY FAILURE, SHOCK CARDIAC HISTORY: CATHERIZATION: NO SURGERY: NO PROSTHETIC VALVE: NO PACEMAKER: NO MEASUREMENTS (cm) DIASTOLIC (NORMALS) SYSTOLIC (NORMALS) IVSd 0.7 (0.6-1.2) LA Diam (1.9-4.0) LVEF 59% LVIDd 2.6 (3.5-5.7) LVIDs 1.9 (2.0-3.5) %FS 30% LVPWd 0.8 (0.6-1.2) Ao Diam 2.2 (2.0-3.7) 2 DIMENSIONAL ASSESSMENT: RIGHT ATRIUM: DILATED LEFT ATRIUM: NORMAL RIGHT VENTRICLE: DILATED LEFT VENTRICLE: NORMAL TRICUSPID VALVE: NORMAL MITRAL VALVE: NORMAL PULMONIC VALVE: NORMAL AORTIC VALVE: NORMAL PERICARDIAL EFFUSION: NONE AORTIC ROOT: NORMAL LEFT VENTRICULAR WALL MOTION: PARADOXICAL SEPTAL MOTION SEEN WITH RIGHT VENTRICULAR PRESSURE OVERLOAD. DOPPLER/COLOR FLOW: MILD TO MODERATE TRICUPSID REGURGITATION. MILD PULMONARY HYPERTENSION. ESTIMATED RIGHT VENTRICULAR SYSTOLIC PRESSURE 48mmHg. COMMENTS: NORMAL LEFT VENTRICULAR EJECTION FRACTION. DILATED RIGHT ATRIUM AND RIGHT VENTRICLE. PARADOXICAL SEPTAL MOTION. MILD TO MODERATE TRICUPSID REGURGITATION. MILD PULMONARY HYPERTENSION. TECHNOLOGIST: Regina WALDRON
[2018-05-23] MEDS ORDERED: VANCOMYCIN 0.75 GM in NA CHLORIDE 0.9% 250 ML IV SCH (14:00)
[2018-05-23] MEDS: PIPER/TAZO/NS 4.5gm 4.5 GM/100 ML BAG IVPB SCH (17:05)
[2018-05-23] MEDS: ARFORMOTEROL TARTRATE 15 MCG/2 ML VIAL.NEB NEB SCH (19:46)
[2018-05-23] MEDS: JEVITY 1.2 CAL LIQUID 1,000 ML BOT FT SCH (20:47)
[2018-05-23] MEDS ORDERED: NA CHLORIDE 0.9% 500 ML IV SCH (21:00)
[2018-05-24] MEDS: PIPER/TAZO/NS 4.5gm 4.5 GM/100 ML BAG IVPB SCH ×3 (01:19→17:19)
[2018-05-24] MEDS: NA CHLORIDE 0.9% 1,000 ML IV SCH ×2 (01:20→08:00)
--- NOTE | 2018-05-24 01:43 | PN ---
Date of Progress Note: 05/23/2018 Subjective: The patient was admitted with altered mental status, rhabdo, acute kidney injury, hypona tremia. The patient found to have hypotension with depletional hyponatremia. The patient was starte d on IV hydration, weaned from the pressor yesterday. Physical Examination: Vital Signs: Blood pressure of 92/61, pulse of 87. The patient had improving urine output, had pick ed up to 700. Chest: Clear to auscultation. Heart: S1, S2. Regular. Abdomen: Soft, nontender. Extremities: No edema. The patient is still on vent. Laboratory Data: WBC 13.3, H and H 13.5/39.2, platelet 197. Sodium 131, potassium 3.2, bicarb 29, B UN 52, creatinine down to 1.1. Glucose still elevated. Calcium 7.3, phosphorous of 1. Magnesium of 2.2. Cortisol level 117. TSH of 1. Urinalysis; specific gravity of 1.025, wbc of 10, urine sodium of 10, urine potassium of 9. Current Medications: The patient on normal saline at 100 per hour, Zosyn 2.25, vancomycin 1 g. Kisha tion ipratropium, Pepcid. Assessment And Plan: 1.Acute kidney injury secondary to prerenal/toxic acute tubular necrosis/rhabdomyolysis on recovery, nonoliguric. We will continue hydration. I am going to give the patient another normal saline bolu s and we will follow up. 2.Hypertension, currently hypotension. We will hold on any blood pressure medication. 3.Rhabdomyolysis. Continue hydration. We will bolus the patient. 4.Hypomagnesemia, hypokalemia. Continue supplement. 5.Septic shock. Continue current antibiotic. I will adjust the Zosyn. We will follow up vancomyci n trough. Culture still negative. 6.Renal mass. I do not think currently significant to work on it. We will continue to monitor the patient. 7.Respiratory failure. Continue current supportive care. We will follow up with Pulmonary. 8.Altered mental status. We will follow up with the primary. SOSA/MODL Voice ID: [id number] Report ID: [id number]
[2018-05-24] MEDS: IPRATROPIUM BROM 0.5MG/2.5ML NEB SCH ×4 (01:55→19:20)
--- NOTE | 2018-05-24 02:48 | PN ---
The patient generally is doing better. Her WBC count has come down. Her blood pressure still low an d kidney function is slightly better. The patient when seen this morning was under the effect of sed ation. However, according to the nurse, she was moving all her extremities. I spoke to the family m madaier today and explained the clinical situation and progress. LOLI/MEREDITH Voice ID: [id number] Report ID: [id number]
[2018-05-24] MEDS: LORazepam 2 MG/ML VIAL IV PRN ×2 (03:46→22:02)
[2018-05-24 05:54] LABS: Albumin 2.1 g/dL (3.4-5.0); BUN Blood Urea Nitrogen 18 mg/dL (7-18); Bicarbonate 34 mmol/L (21-32); Glucose Level 127 mg/dL (74-106); Magnesium 2.1 mg/dL (1.8-2.4); Phosphorus 1.1 mg/dL (2.5-4.9); Potassium 3.3 mmol/L (3.5-5.1); Sodium Level 139 mmol/L (136-145)
[2018-05-24] MEDS: ARFORMOTEROL TARTRATE 15 MCG/2 ML VIAL.NEB NEB SCH ×2 (07:20→19:20)
[2018-05-24] MEDS: FAMOTIDINE 20 MG/2 ML VIAL IV SCH ×2 (08:12→20:18)
[2018-05-24] MEDS ORDERED: POTASSIUM 25 MEQ EFFERV TAB PO ONE (10:15)
--- NOTE | 2018-05-24 10:57 | P.PN ---
Subjective Date of Service: 05/24/18 Chief Complaint: Unresponsive Subjective: No new changes pt who was admitted for AMS, Hypotensive and SABRINA with hypokalemia and hyponatremia responded to IVF found to have Lt renal mass, suspicious for malignancy still intubated K 3.3 , phos 1.0 Will give 30mew of K phos monitor electrolytes and Mg Mg ok , corrected Ca ok Physical Examination - Vital Signs Temperature: 98.3 F Blood Pressure: 129/65 Pulse: 92 Respirations: 16 Pulse Ox (%): 99 - Physical Exam General: Other (Intubated ) HEENT: Atraumatic Neck: Supple Respiratory: Clear to auscultation bilaterally, Normal air movement Cardiovascular: No edema, Regular rate/rhythm, Normal S1 S2 Gastrointestinal: Normal bowel sounds Integumentary: No rashes - Studies Microbiology Data (last 24 hrs): 05/21/18 22:25 Catheterized Urine [place] Count - Final <10,000 CFU/ML. 05/21/18 22:25 Catheterized Urine - Final Assessment And Plan - Current Problems (Diagnosis) (1) SABRINA (acute kidney injury) Current Visit: Yes Status: Acute (2) Hyponatremia Current Visit: Yes Status: Acute (3) Hypokalemia Current Visit: Yes Status: Acute - Plan 1.Acute kidney injury secondary to prerenal azotemia Resolved on IVF Renal US: no hydro 2. Lt renal mass no previous hx US: 3.5X3.5 lt renal solid lesion , suspicious for malignancy not mentioned in CT , discussed with radiologist , as CT study was without contrast it was hard to appreciate any lesion on CT will get abdominal MRI with gadolinium or abdominal/pelvic CT with contrast once pt is extubated and more stable 3. hypokaleima likely depletioan +/- reffeding syndro will give K phos Cont to monitor 4. hypophospahtemia likely depletioan +/- reffeding syndro +/- resp alkalosis will give K phos Mg WNL 5. hyponatremia resolved depletional 6. Urosepsis with septic shock. The patient was started on vanco and Zosyn. We will follow up culture. 7. AMS head Ct -ve Cont Abx
[2018-05-24] MEDS: POTASSIUM PHOS IN 0.9 % NACL 15 MMOL/250 ML BAG IV SCH ×2 (11:04→17:19)
--- NOTE | 2018-05-24 12:35 | P.PN ---
Subjective Date of Service: 05/24/18 Chief Complaint: Unresponsive Subjective: Improving (Patient's condition is stable she was weaned of Levophed tolerating tube feeds) Review of Systems is unable to be obtained Physical Examination - Vital Signs Temperature: 98.3 F Blood Pressure: 143/84 Pulse: 99 Respirations: 18 Pulse Ox (%): 100 - Physical Exam General: Unresponsive Neck: Supple Respiratory: Clear to auscultation bilaterally Cardiovascular: No edema, Normal S1 S2 Gastrointestinal: Normal bowel sounds, Soft and benign - Studies Microbiology Data (last 24 hrs): 05/21/18 22:25 Catheterized Urine [place] Count - Final <10,000 CFU/ML. 05/21/18 22:25 Catheterized Urine - Final Assessment & Plan - Problems (Diagnosis) (1) Respiratory failure Current Visit: Yes Status: Acute Plan: Patient is 68 years of age admitted with respiratory failure improving not responding labs reviewed unremarkable so far no evidence of infection admission chest x-ray was clear of ordered another 1 sputum cultures possible Dc antibiotics tomorrow wean and extubate Qualifiers: Chronicity: acute (2) Renal mass Current Visit: Yes Status: Acute Plan: Patient has a mass in the left upper pole of the kidney most likely renal cancer
--- NOTE | 2018-05-24 13:43 | RAD REPORT ---
EXAM DESCRIPTION: RAD - Chest Single View - 05/24/2018 1:36 pm CLINICAL HISTORY: Respiratory failure on a vent Chest pain. COMPARISON: Chest Single View dated 05/21/2018; Chest Pa And Lat (2 Views) dated 11/08/2017; CHEST PA AND LAT 2 VIEW dated 02/14/2013 FINDINGS: Portable technique limits examination quality. The lungs are grossly clear. The heart is normal in size. Tip of the ET tube is above the catracho. Ent daly tube descends in the stomach.
--- NOTE | 2018-05-24 23:40 | PN ---
The patient's urine output, renal function, as well as white cell count are improving. Her wheezing also is better, however, she is not able to come off ventilator yet. The patient is getting NG feedi ng. The patient meanwhile will be continued on the same antibiotic coverage so far. Blood cultures are negative. LOLI/MEREDITH Voice ID: [id number] Report ID: [id number]
[2018-05-25] MEDS: JEVITY 1.2 CAL LIQUID 1,000 ML BOT FT SCH (01:00)
[2018-05-25] MEDS: PIPER/TAZO/NS 4.5gm 4.5 GM/100 ML BAG IVPB SCH ×2 (01:00→10:02)
[2018-05-25] MEDS: IPRATROPIUM BROM 0.5MG/2.5ML NEB SCH ×4 (02:15→20:25)
[2018-05-25 06:14] LABS: Absolute Lymphocytes (CBC) 1.1 K/uL (0.7-4.9); Absolute Monocytes 1.8 K/uL (0.1-1.3); Basophils % 0.1 % (0-1.3); Eosinophils % 0.3 % (0-4.4); Lymphocytes % 8.7 % (15.3-44.8); MCH 31.2 pg (27.0-35.0); MCV 91.6 fL (80-100); MPV 8.2 fL (7.6-11.3); Monocytes % 13.8 % (3.3-12.3); RBC Red Blood Cell Count 3.71 M/uL (3.86-4.86)
[2018-05-25 06:48] LABS: Albumin 2.3 g/dL (3.4-5.0); BUN Blood Urea Nitrogen 7 mg/dL (7-18); Bicarbonate 36 mmol/L (21-32); Glucose Level 88 mg/dL (74-106); Magnesium 1.6 mg/dL (1.8-2.4); Phosphorus 1.8 mg/dL (2.5-4.9); Sodium Level 137 mmol/L (136-145)
[2018-05-25] MEDS: ARFORMOTEROL TARTRATE 15 MCG/2 ML VIAL.NEB NEB SCH ×2 (08:25→20:25)
[2018-05-25] MEDS ORDERED: MAGNESIUM SULFATE 1 gm IVPB 1 GM/100 ML BAG IV ONE (09:00)
[2018-05-25] MEDS ORDERED: POTASSIUM PHOS IN 0.9 % NACL 15 MMOL/250 ML BAG IV ONE (09:59)
[2018-05-25] MEDS: FAMOTIDINE 20 MG/2 ML VIAL IV SCH (10:02)
--- NOTE | 2018-05-25 10:08 | P.PN ---
Subjective Date of Service: 05/25/18 Chief Complaint: Unresponsive pt was admitted for AMS, Hypotensive and SABRINA with hypokalemia and hyponatremia responded to IVF found to have Lt renal mass, suspicious for malignancy na and K ok Phos 1.8 , will replace CT abd/pelvis or MRI with gadolinium when stable to evaluate renal mass Physical Examination - Vital Signs Temperature: 98.2 F Blood Pressure: 153/74 Pulse: 92 Respirations: 17 Pulse Ox (%): 95 - Physical Exam General: Other (Intubated ) HEENT: Atraumatic Neck: Supple, Without JVD or thyroid abnormality Respiratory: Clear to auscultation bilaterally, Normal air movement Cardiovascular: No edema - Studies Microbiology Data (last 24 hrs): 05/21/18 22:25 Catheterized Urine [place] Count - Final <10,000 CFU/ML. 05/21/18 22:25 Catheterized Urine - Final Assessment And Plan - Current Problems (Diagnosis) (1) SABRINA (acute kidney injury) Current Visit: Yes Status: Acute (2) Hyponatremia Current Visit: Yes Status: Acute (3) Hypokalemia Current Visit: Yes Status: Acute - Plan 1.Acute kidney injury secondary to prerenal azotemia Resolved on IVF Renal US: no hydro 2. Lt renal mass no previous hx US: 3.5X3.5 lt renal solid lesion , suspicious for malignancy not mentioned in CT , discussed with radiologist , as CT study was without contrast it was hard to appreciate any lesion on CT will get abdominal MRI with gadolinium or abdominal/pelvic CT with contrast once pt is extubated and more stable 3. hypokaleima, resolved likely depletioan +/- reffeding syndro will give K phos Cont to monitor 4. hypophospahtemia likely depletioan +/- reffeding syndro +/- resp alkalosis will cont to replace Mg WNL 5. hyponatremia , resolved depletional 6. septic shock. cultures -ve Cont Abx Monitor vanco level 7. AMS head Ct -ve Cont Abx
[2018-05-25] MEDS: HALOPERIDOL LACT 5 MG/ML INJ IV PRN (11:17)
[2018-05-25] MEDS: ENOXAPARIN 30 MG/0.3 ML SQ SCH (11:17)
--- NOTE | 2018-05-25 11:19 | P.PN ---
Subjective Date of Service: 05/25/18 Chief Complaint: Agitated on a ventilator Condition stable patient is agitated alert responsive cooperative according to the [id number] she is a very heavy smoker has baseline hallucinations and dementia Review of Systems is unable to be obtained Physical Examination - Vital Signs Temperature: 98.2 F Blood Pressure: 153/74 Pulse: 92 Respirations: 17 Pulse Ox (%): 95 - Physical Exam General: Alert, Cooperative, Mild distress Respiratory: Clear to auscultation bilaterally Cardiovascular: No edema, Normal S1 S2 - Studies Microbiology Data (last 24 hrs): 05/21/18 22:25 Catheterized Urine [place] Count - Final <10,000 CFU/ML. 05/21/18 22:25 Catheterized Urine - Final Assessment & Plan - Problems (Diagnosis) (1) Respiratory failure Current Visit: Yes Status: Acute Plan: Patient's condition is stable will plan to wean and extubate her nicotine patch tolerating tube feeds minimal oxygen requirements [place] cultures are negative so far Dc antibiotics the probably extubate her and try a BiPAP chemistries reviewed chest x-rays clear Haldol p.r.n. continue with bronchodilators and Atrovent nebulized Dc IV famotidine Qualifiers: Chronicity: acute (2) Renal mass Current Visit: Yes Status: Acute Plan: Patient has a mass in the left upper pole of the kidney most likely renal cancer
[2018-05-25] MEDS: NICOTINE 21 MG/PAT TD SCH (12:46)
[2018-05-25] MEDS ORDERED: ENOXAPARIN 30 MG/0.3 ML SQ SCH (17:00)
--- NOTE | 2018-05-25 18:07 | PN ---
Subjective: The patient is a better today. She is in the process of weaning off ventilator. Her bl ood pressure looks normal. She started on Lovenox for DVT prophylaxis and she does not have any evid ence of active bleeding. The patient hopefully will be off ventilator. LOLI/MEREDITH Voice ID: [id number] Report ID: [id number]
[2018-05-26] MEDS: IPRATROPIUM BROM 0.5MG/2.5ML NEB SCH ×4 (01:21→20:00)
[2018-05-26 05:27] LABS: Albumin 2.3 g/dL (3.4-5.0); BUN Blood Urea Nitrogen 7 mg/dL (7-18); Bicarbonate 40 mmol/L (21-32); Glucose Level 113 mg/dL (74-106); Phosphorus 3.7 mg/dL (2.5-4.9); Sodium Level 138 mmol/L (136-145)
[2018-05-26] MEDS: ARFORMOTEROL TARTRATE 15 MCG/2 ML VIAL.NEB NEB SCH ×2 (08:17→20:00)
[2018-05-26] MEDS: NICOTINE 21 MG/PAT TD SCH (08:28)
[2018-05-26] MEDS: ENOXAPARIN 30 MG/0.3 ML SQ SCH (08:30)
--- NOTE | 2018-05-26 15:18 | PN ---
Subjective: The patient is extubated. She has problem with phonation. Her vital signs are stable. She will be continued on feeding as she has trouble swallowing liquids. When she is able to swallow liquids, the NG tube will be discontinued. LOLI/MEREDITH Voice ID: [id number] Report ID: [id number]
[2018-05-26] MEDS: PRIMIDONE 50 MG TAB PO SCH (21:06)
--- NOTE | 2018-05-27 00:49 | PN ---
Date of Progress Note: 05/26/2018 Chief Complaint: Acute kidney injury, hyponatremia, rhabdomyolysis. History Of Present Illness: The patient was presented to the hospital with altered mental status, was found to have a hypotension and lab work revealed hyponatremia. The patient was started on IV hydration and required primarily pressor support for hypotension, was weaned off pressors and she remains in ICU. Over last 24 hours sodium level today is in the stable range, overall improved during this hospitalization. The patient is alert, although somewhat confused. Review of Systems: Denies complaints. Physical Examination: Lungs: Clear to auscultation bilaterally. Heart: S1, S2. Abdomen: Soft. Benign. Extremities: No edema. Laboratory Data: Hemoglobin 11.6, WBC 13.0. Chemistries showed sodium 138, potassium 4.0, chloride 93, BUN 7, creatinine 0.4, calcium 9.0, phosphorus 3.7 , magnesium 2.2. Impression And Plan: 1. Acute kidney injury, prerenal azotemia. Creatinine level improved from 1.1 to 0.4. BUN was up to 52, currently 7.0. The patient was found to have hypomagnesemia. Magnesium was 1.6 and received replacement. 2. The patient was treated for hypophosphatemia. Phosphorus level improved from 1.0 to 3.7. Continue replacement as needed. Monitor lab work. 3. Hyponatremia was corrected. Over last 48 hours sodium level remains stable at the 137 to 139 range. Continue hydration. Monitor electrolytes closely. CAMERON/MEREDITH Voice ID: [id number] Report ID: [id number] SHELDON
[2018-05-27] MEDS: IPRATROPIUM BROM 0.5MG/2.5ML NEB SCH ×4 (01:12→21:02)
[2018-05-27] MEDS ORDERED: AMLODIPINE 2.5 MG TAB PO ONE (02:30)
[2018-05-27] MEDS: JEVITY 1.2 CAL LIQUID 1,000 ML BOT FT SCH (03:07)
[2018-05-27 05:36] LABS: Albumin 2.6 g/dL (3.4-5.0); BUN Blood Urea Nitrogen 8 mg/dL (7-18); Bicarbonate 36 mmol/L (21-32); Glucose Level 164 mg/dL (74-106); Magnesium 1.9 mg/dL (1.8-2.4); Phosphorus 3.6 mg/dL (2.5-4.9); Potassium 3.8 mmol/L (3.5-5.1); Sodium Level 135 mmol/L (136-145)
[2018-05-27] MEDS ORDERED: POTASSIUM 25 MEQ EFFERV TAB PO ONE (07:30)
[2018-05-27] MEDS: ARFORMOTEROL TARTRATE 15 MCG/2 ML VIAL.NEB NEB SCH ×2 (07:44→21:02)
[2018-05-27] MEDS: PRIMIDONE 50 MG TAB PO SCH ×2 (08:45→19:54)
[2018-05-27] MEDS: ENOXAPARIN 30 MG/0.3 ML SQ SCH (08:45)
[2018-05-27] MEDS: NICOTINE 21 MG/PAT TD SCH ×2 (08:46→16:16)
--- NOTE | 2018-05-27 10:28 | P.PN ---
Subjective Date of Service: 05/27/18 Chief Complaint: COPD exacerbation The patient is doing better she was extubated still requiring high concentrations of oxygen tolerating tube feeds nonverbal Review of Systems is unable to be obtained Physical Examination - Vital Signs Temperature: 99.2 F Blood Pressure: 166/95 Pulse: 117 Respirations: 24 Pulse Ox (%): 91 - Physical Exam General: Alert, Other (Patient is not cooperative) Neck: Supple Respiratory: Clear to auscultation bilaterally, Diminished Assessment & Plan - Problems (Diagnosis) (1) Respiratory failure Current Visit: Yes Status: Acute Plan: Patient is 68 years of age admitted with acute on chronic respiratory failure secondary to a severe COPD continue with the bronchodilators I have added PEP tX. Change to nasal cannula oxygen control blood pressure at spironolactone Qualifiers: Chronicity: acute (2) Renal mass Current Visit: Yes Status: Acute Plan: Patient has a mass in the left upper pole of the kidney most likely renal cancer
[2018-05-27] MEDS: SPIRONOLACTONE 25 MG TABLET PO SCH (11:05)
[2018-05-27 16:43] LABS: Blood Gas Oxyhemoglobin 88.5 % (94-97); Blood O2 Saturation 90.2 % (92-98.5)
[2018-05-27] MEDS: AMLODIPINE 2.5 MG TAB PO SCH ×2 (17:53→18:56)
--- NOTE | 2018-05-27 21:07 | PN ---
Subjective: The patient is more alert today; however, her O2 saturation decreased, needed more FiO2. Objective: Chest: She has scattered wheezes. Heart: Regular. Vital Signs: Blood pressure is normal. She will be continued along the same lines of treatment. LOLI/MEREDITH Voice ID: [id number] Report ID: [id number]
--- NOTE | 2018-05-27 22:31 | PN ---
Date of Progress Note: 05/27/2018 Chief Complaint: Acute kidney injury, hyponatremia, rhabdomyolysis. History Of Present Illness: The patient presented to the hospital with altered mental status, was found to have hypotension. Lab work revealed hyponatremia. The patient was treated with IV fluids to correct hyponatremia and to start IV fluids for blood pressure support, she received IV hydration. She was weaned off pressors. She remains in ICU. Sodium level has stabilized and gradually corrected. Over last 48 hours, sodium level remains at stable range. The patient is more alert today. Review of Systems: Denies complaints. Physical Examination: Lungs: Clear to auscultation bilaterally. Heart: S1, S2. Abdomen: Soft, benign. Extremities: No edema. Laboratory Data: Hemoglobin 11.6, WBC 13,000, platelet count 225,000. Sodium 135, potassium 3.8, chloride 92, CO2 36, BUN 8, creatinine 0.4, calcium 9.3, phosphorus 3.6, and magnesium 1.9. Impression And Plan: 1. Hyponatremia. Sodium level improved and stabilized over last 72 hours. Continue to monitor electrolytes. 2. Malnutrition. The patient was treated for hypophosphatemia. Phosphorus level improved from 1.0 to 3.7. Continue replacement as needed. 3. Acute kidney injury secondary to prerenal azotemia. Creatinine level improved from 1.1 to 0.4. BUN was 52 and improved to 7.0. 4. Hypomagnesemia. Magnesium replacement will be ordered according to lab work results. CAMERON/MEREDITH Voice ID: [id number] Report ID: [id number] SHELDON
[2018-05-28] MEDS: FENTANYL CITR 100 MCG/2 ML IV PRN (01:07)
[2018-05-28] MEDS: JEVITY 1.2 CAL LIQUID 1,000 ML BOT FT SCH (01:56)
[2018-05-28] MEDS: IPRATROPIUM BROM 0.5MG/2.5ML NEB SCH ×4 (02:00→19:40)
[2018-05-28] MEDS: HALOPERIDOL LACT 5 MG/ML INJ IV PRN (03:57)
[2018-05-28 05:59] LABS: BUN Blood Urea Nitrogen 19 mg/dL (7-18); Bicarbonate 37 mmol/L (21-32); Glucose Level 219 mg/dL (74-106); Potassium 4.5 mmol/L (3.5-5.1); Sodium Level 133 mmol/L (136-145)
[2018-05-28] MEDS: ARFORMOTEROL TARTRATE 15 MCG/2 ML VIAL.NEB NEB SCH ×2 (08:15→19:40)
--- NOTE | 2018-05-28 08:47 | P.PN ---
Subjective Date of Service: 05/28/18 Chief Complaint: COPD exacerbation Patient is still on BiPAP had a difficult night last night still not responsive although alert tachypneic on a BiPAP Review of Systems is unable to be obtained Physical Examination - Vital Signs Temperature: 100 F Blood Pressure: 111/63 Pulse: 113 Respirations: 26 Pulse Ox (%): 98 - Physical Exam General: Alert, Other (Patient is not cooperative) Neck: Supple Respiratory: Diminished, Expiratory wheezes Cardiovascular: Regular rate/rhythm, Normal S1 S2 Assessment & Plan - Problems (Diagnosis) (1) Respiratory failure Current Visit: Yes Status: Acute Plan: Patient admitted with chronic respiratory failure. There is a probably history of underlying dementia blood pressure is now under control titrate sat to 90% repeat ABGs resume steroids Qualifiers: Chronicity: acute (2) Renal mass Current Visit: Yes Status: Acute Plan: Patient has a mass in the left upper pole of the kidney most likely renal cancer
[2018-05-28] MEDS ORDERED: AMLODIPINE 2.5 MG TAB PO SCH (09:00)
[2018-05-28 09:11] LABS: Arterial Blood Carboxyhemoglob 0.9 % (0-1.5); Blood O2 Saturation 85.2 % (92-98.5)
[2018-05-28] MEDS: ENOXAPARIN 30 MG/0.3 ML SQ SCH (09:37)
[2018-05-28] MEDS: NICOTINE 21 MG/PAT TD SCH (09:37)
[2018-05-28] MEDS: METHYLPREDNISOLONE 40 MG INJ IV SCH ×2 (09:37→16:50)
[2018-05-28] MEDS: PRIMIDONE 50 MG TAB PO SCH ×2 (09:37→20:37)
[2018-05-28] MEDS: SPIRONOLACTONE 25 MG TABLET PO SCH (09:38)
[2018-05-28] MEDS: LORazepam 2 MG/ML VIAL IV PRN ×2 (12:25→20:37)
[2018-05-29] MEDS: HALOPERIDOL LACT 5 MG/ML INJ IV PRN (00:18)
[2018-05-29] MEDS: METHYLPREDNISOLONE 40 MG INJ IV SCH ×4 (00:18→23:54)
--- NOTE | 2018-05-29 00:26 | PN ---
The patient again desaturated and started having respiratory failure almost needing intubation; howev er, the patient's family did not want any more intubation or resuscitation. This was documented by t betsey nurse. The patient will be given supportive care. LOLI/MEREDITH Voice ID: [id number] Report ID: [id number]
[2018-05-29] MEDS: IPRATROPIUM BROM 0.5MG/2.5ML NEB SCH ×4 (01:01→20:50)
--- NOTE | 2018-05-29 03:05 | PN ---
Date of Progress Note: 05/28/2018 Chief Complaint: Hyponatremia, hypoosmolar; acute kidney injury. Subjective: The patient developed prerenal azotemia, responded to IV fluids. Renal function stabili zed and electrolytes remained in stable range. The patient had episodes of mild hypokalemia and this resolved with replacement. Also, the patient was found to have hypophosphatemia. Phosphorus was 1. 1 and the patient received replacement. Phosphorus level improved to 3.7. Magnesium improved after supplementation from 1.6 to 1.9. Today, sodium was 133, glucose 219. BUN improved to 19 and creatin ine 0.6. Review of Systems: Unobtainable. The patient is very lethargic. Physical Examination: Lungs: Coarse breath sounds bilaterally. Heart: S1, S2. Abdomen: Soft, benign. Extremities: No edema. Impression And Plan: Acute kidney injury, prerenal azotemia, resolved. Continue to monitor electrol ytes. Continue IV fluids for hydration. The patient is on tube feeding. Free water flushes were us ed due to dilutional hyponatremia. Monitor electrolytes closely. EB/MODL Voice ID: [id number] Report ID: [id number]
[2018-05-29] MEDS: JEVITY 1.2 CAL LIQUID 1,000 ML BOT FT SCH (05:21)
[2018-05-29 06:35] LABS: BUN Blood Urea Nitrogen 35 mg/dL (7-18); Glucose Level 136 mg/dL (74-106); Magnesium 2.6 mg/dL (1.8-2.4); Potassium 5.4 mmol/L (3.5-5.1); Sodium Level 137 mmol/L (136-145)
[2018-05-29 06:39] LABS: Bicarbonate 43 mmol/L (21-32)
[2018-05-29] MEDS: ARFORMOTEROL TARTRATE 15 MCG/2 ML VIAL.NEB NEB SCH ×2 (08:00→20:50)
[2018-05-29] MEDS: PRIMIDONE 50 MG TAB PO SCH (09:02)
[2018-05-29] MEDS: ENOXAPARIN 30 MG/0.3 ML SQ SCH (09:02)
[2018-05-29] MEDS: NICOTINE 21 MG/PAT TD SCH (09:03)
[2018-05-29 10:09] LABS: Arterial Blood Carboxyhemoglob 1.3 % (0-1.5); Blood Gas Oxyhemoglobin 87.6 % (94-97); Blood O2 Saturation 89.2 % (92-98.5)
--- NOTE | 2018-05-29 11:45 | P.PN ---
Subjective Date of Service: 05/29/18 Chief Complaint: COPD exacerbation Subjective: Worsening Patient's condition is worsening she was agitated and is becoming progressively more hypercapnic less responsive Review of Systems is unable to be obtained Physical Examination - Vital Signs Temperature: 100.3 F Blood Pressure: 132/78 Pulse: 116 Respirations: 26 Pulse Ox (%): 89 - Physical Exam General: Unresponsive Respiratory: Clear to auscultation bilaterally, Diminished Cardiovascular: No edema, Regular rate/rhythm Assessment & Plan - Problems (Diagnosis) (1) Respiratory failure Current Visit: Yes Status: Acute Plan: Patient has progressive hypercapnic respiratory failure this currently do not resuscitate plan for comfort care transfer to the floor prognosis is very poor patient is currently under maximum bronchodilator therapy will Dc primidone continue with steroids transfer to the floor Qualifiers: Chronicity: acute (2) Renal mass Current Visit: Yes Status: Acute Plan: The son aware that she probably underlying renal cancer
[2018-05-29] MEDS ORDERED: SOD POLYSTYREN SUL 15 GM/60 ML UCUP FT ONE (14:27)
--- NOTE | 2018-05-29 20:39 | P.PN ---
Subjective Date of Service: 05/29/18 Chief Complaint: COPD exacerbation extubated and lethargic severe resp acidosis, DNR/DNI will defer renal mass w/u for now Plan for comfort care? Physical Examination - Vital Signs Temperature: 98.6 F Blood Pressure: 117/64 Pulse: 116 Respirations: 20 Pulse Ox (%): 92 - Physical Exam General: Comatose HEENT: Atraumatic Neck: Without JVD or thyroid abnormality Respiratory: Clear to auscultation bilaterally Cardiovascular: No edema, Regular rate/rhythm, Normal S1 S2, No rubs, No murmurs Gastrointestinal: Normal bowel sounds, Soft and benign Assessment And Plan - Current Problems (Diagnosis) (1) SABRINA (acute kidney injury) Current Visit: Yes Status: Acute (2) Hyponatremia Current Visit: Yes Status: Acute (3) Hypokalemia Current Visit: Yes Status: Acute - Plan 1.Acute kidney injury secondary to prerenal azotemia Resolved on IVF Renal US: no hydro 2. Lt renal mass no previous hx US: 3.5X3.5 lt renal solid lesion , suspicious for malignancy not mentioned in CT , discussed with radiologist , as CT study was without contrast it was hard to appreciate any lesion on CT will defer w/u for now will wait for GOC verification 3. hypokaleima, resolved likely depletioan +/- reffeding syndro 4. hypophospahtemia , resolved likely depletioan +/- reffeding syndro +/- resp alkalosis 5. hyponatremia , resolved depletional 6. septic shock. Cont Abx 7severe resp acidosis now DNR
--- NOTE | 2018-05-29 22:39 | PN ---
The patient still looks lethargic and needs BiPAP. However in view of DNR, the patient is moved to r egular room, where the patient's family can spend time with the patient. The patient's family will a lso be given information about hospice care. LOLI/MEREDITH Voice ID: [id number] Report ID: [id number]
[2018-05-30] MEDS: IPRATROPIUM BROM 0.5MG/2.5ML NEB SCH ×4 (01:58→19:35)
[2018-05-30] MEDS: JEVITY 1.2 CAL LIQUID 1,000 ML BOT FT SCH (03:45)
[2018-05-30] MEDS: ARFORMOTEROL TARTRATE 15 MCG/2 ML VIAL.NEB NEB SCH ×2 (08:00→19:35)
[2018-05-30] MEDS: ENOXAPARIN 30 MG/0.3 ML SQ SCH (09:14)
[2018-05-30] MEDS: NICOTINE 21 MG/PAT TD SCH (09:14)
[2018-05-30] MEDS: METHYLPREDNISOLONE 40 MG INJ IV SCH ×2 (09:14→17:41)
--- NOTE | 2018-05-30 22:28 | PN ---
Date of Progress Note: 05/30/2018 Subjective: The patient was transferred to the floor. The patient on tube feeds. Physical Examination: Vital Signs: Blood pressure of 130/65, pulse 110. Chest: Clear to auscultation. Heart: S1, S2. Regular. Systolic murmur. Abdomen: Soft, nontender. Extremities: Trace edema. Laboratory Data: WBC 13, H and H 11.6/34, platelet 225. Sodium 137, potassium 5.4, bicarb 43, BUN 3 5, creatinine 0.6, calcium 9.6. Current Medications: The patient is on includes; 1.Lovenox. 2.Haloperidol. 3.Solu-Medrol. 4.Zofran. Assessment And Plan: 1.Acute kidney injury secondary to prerenal, recovered, resolved. 2.Hyperkalemia. We will give the patient albuterol D50 and we will switch the tube feeding __ to decrease. RAMANDEEP Voice ID: [id number] Report ID: [id number]
[2018-05-30] MEDS: NEPRO 1,000 ML BOT FT SCH (23:07)
[2018-05-31] MEDS: METHYLPREDNISOLONE 40 MG INJ IV SCH ×3 (01:04→16:03)
--- NOTE | 2018-05-31 01:36 | PN ---
The patient is on BiPAP. The patient has adequate O2 saturations. She has bilateral scattered wheez es. The patient will be continued on the same management until family takes a decision as to what pl binh she needs to be discharged to. LOLI/MEREDITH Voice ID: [id number] Report ID: [id number]
[2018-05-31] MEDS: IPRATROPIUM BROM 0.5MG/2.5ML NEB SCH ×4 (02:00→20:46)
[2018-05-31 06:12] LABS: Albumin 2.4 g/dL (3.4-5.0); BUN Blood Urea Nitrogen 33 mg/dL (7-18); Glucose Level 146 mg/dL (74-106); Phosphorus 2.8 mg/dL (2.5-4.9); Sodium Level 149 mmol/L (136-145)
[2018-05-31 06:13] LABS: Bicarbonate 51 mmol/L (21-32)
[2018-05-31] MEDS: NICOTINE 21 MG/PAT TD SCH (08:21)
[2018-05-31] MEDS: ENOXAPARIN 30 MG/0.3 ML SQ SCH (08:21)
[2018-05-31] MEDS: ARFORMOTEROL TARTRATE 15 MCG/2 ML VIAL.NEB NEB SCH ×2 (08:45→20:45)
--- NOTE | 2018-05-31 10:48 | P.PN ---
Subjective Date of Service: 05/31/18 Chief Complaint: COPD exacerbation Patient is more alert responsive cooperative on a BiPAP bicarbonate elevated also becoming hypernatremic Review of Systems is unable to be obtained Physical Examination - Vital Signs Temperature: 97.9 F Blood Pressure: 134/66 Pulse: 110 Respirations: 24 Pulse Ox (%): 94 - Physical Exam General: Alert, Cooperative Respiratory: Clear to auscultation bilaterally, Diminished Cardiovascular: No edema, Regular rate/rhythm Assessment & Plan - Problems (Diagnosis) (1) Respiratory failure Current Visit: Yes Status: Acute Plan: Patient admitted with respiratory failure plan is to start her on D5 water for hypernatremia an elevated bicarbonate she is most likely volume depleted try a nasal cannula oxygen I have also added Diamox bedside physical therapy continue with nutrition increase NG tube fluids Qualifiers: Chronicity: acute (2) Renal mass Current Visit: Yes Status: Acute Plan: The son aware that she probably underlying renal cancer
[2018-05-31] MEDS: D5W 1,000 ML IV SCH ×2 (11:11→20:33)
[2018-05-31 11:52] LABS: Arterial Blood Carboxyhemoglob 1.3 % (0-1.5); Blood Gas Oxyhemoglobin 82.4 % (94-97); Blood O2 Saturation 83.8 % (92-98.5)
--- NOTE | 2018-05-31 13:16 | PN ---
The patient is still needing BiPAP. The patient's bicarb is high that is compatible with CO2 retenti on. I spoke to the sister regarding her care and possible need for long-term BiPAP. LOLI/MEREDITH Voice ID: [id number] Report ID: [id number]
[2018-05-31] MEDS ORDERED: WATER FOR INJ,STERILE 10 ML ONE (20:52)
[2018-05-31] MEDS ORDERED: ACETAZOLAMIDE 500 MG IV IV SCH (21:00)
--- NOTE | 2018-05-31 21:29 | P.PN ---
Subjective Date of Service: 05/31/18 Chief Complaint: COPD exacerbation extubated and lethargic severe resp acidosis, DNR/DNI will defer renal mass w/u for now GOC veriufication Hypernatremia , agree on d5w Hold acetazolamide , high bicarb 2/2 resp acidosis Physical Examination - Vital Signs Temperature: 97.8 F Blood Pressure: 161/73 Pulse: 85 Respirations: 22 Pulse Ox (%): 90 - Physical Exam General: Alert, Moderate distress HEENT: Atraumatic Neck: Without JVD or thyroid abnormality Respiratory: Diminished Cardiovascular: No edema, Normal S1 S2, No murmurs Gastrointestinal: Normal bowel sounds Assessment And Plan - Current Problems (Diagnosis) (1) SABRINA (acute kidney injury) Current Visit: Yes Status: Acute (2) Hyponatremia Current Visit: Yes Status: Acute (3) Hypokalemia Current Visit: Yes Status: Acute - Plan 1.Acute kidney injury secondary to prerenal azotemia Resolved on IVF Renal US: no hydro 2. Lt renal mass no previous hx US: 3.5X3.5 lt renal solid lesion , suspicious for malignancy not mentioned in CT , discussed with radiologist , as CT study was without contrast it was hard to appreciate any lesion on CT will defer w/u for now will wait for GOC verification 3. hypernatremia 2/2 poor intake D5W 4. septic shock. Cont Abx 5.severe resp acidosis now DNR hold acetazolamide
[2018-05-31] MEDS: NEPRO 1,000 ML BOT FT SCH (23:42)
[2018-06-01] MEDS: METHYLPREDNISOLONE 40 MG INJ IV SCH ×2 (00:11→09:07)
[2018-06-01] MEDS: D5W 1,000 ML IV SCH ×2 (00:20→14:30)
[2018-06-01] MEDS: IPRATROPIUM BROM 0.5MG/2.5ML NEB SCH ×3 (01:31→14:00)
[2018-06-01] MEDS ORDERED: GLUCAGON 1 MG/VIAL IM PRN (07:07)
[2018-06-01] MEDS ORDERED: D50W 25 GM/50 ML SYRINGE IV PRN (07:07)
[2018-06-01] MEDS: ARFORMOTEROL TARTRATE 15 MCG/2 ML VIAL.NEB NEB SCH (07:24)
[2018-06-01 08:27] LABS: Albumin 2.3 g/dL (3.4-5.0); BUN Blood Urea Nitrogen 34 mg/dL (7-18); Glucose Level 180 mg/dL (74-106); Phosphorus 4.2 mg/dL (2.5-4.9); Potassium 4.2 mmol/L (3.5-5.1); Sodium Level 147 mmol/L (136-145)
[2018-06-01 08:30] LABS: Bicarbonate > 45 mmol/L (21-32)
[2018-06-01] MEDS: ENOXAPARIN 30 MG/0.3 ML SQ SCH (09:02)
[2018-06-01] MEDS: NICOTINE 21 MG/PAT TD SCH (09:03)
--- NOTE | 2018-06-01 11:23 | P.PN ---
Subjective Date of Service: 06/01/18 Chief Complaint: COPD exacerbation extubated and lethargic severe resp acidosis, DNR/DNI will defer renal mass w/u for now GOC veriufication Hypernatremia , na now 147 , will cont to monitor and adjust D5W rate Pt with severe resp acidosis, and unlikely to respond to IVF or acetazolamide Physical Examination - Vital Signs Temperature: 97.3 F Blood Pressure: 155/70 Pulse: 110 Respirations: 20 Pulse Ox (%): 91 - Physical Exam General: Moderate distress, Other (eyes open, not alert or oriented ) HEENT: Atraumatic Neck: Without JVD or thyroid abnormality Respiratory: Diminished Cardiovascular: No edema, Regular rate/rhythm, Normal S1 S2, No rubs Assessment And Plan - Current Problems (Diagnosis) (1) SABRINA (acute kidney injury) Current Visit: Yes Status: Acute (2) Hyponatremia Current Visit: Yes Status: Acute (3) Hypokalemia Current Visit: Yes Status: Acute - Plan 1.Acute kidney injury secondary to prerenal azotemia Resolved on IVF Renal US: no hydro 2. Lt renal mass no previous hx US: 3.5X3.5 lt renal solid lesion , suspicious for malignancy not mentioned in CT , discussed with radiologist , as CT study was without contrast it was hard to appreciate any lesion on CT will defer w/u for now will wait for [facility] verification 3. hypernatremia 2/2 poor intake D5W 4. septic shock. Cont Abx 5.severe resp acidosis now DNR hold acetazolamide
[2018-06-01 11:35] LABS: Arterial Blood Carboxyhemoglob 1.3 % (0-1.5); Blood Gas Oxyhemoglobin 85.7 % (94-97); Blood O2 Saturation 87.3 % (92-98.5)
[2018-06-01] MEDS ORDERED: INSULIN -REGULAR HUMAN 50 UNIT/0.5 ML ML SQ SCH (12:00)
--- NOTE | 2018-06-02 10:34 | PN ---
Date of Progress Note: 05/30/2018 Subjective: The patient was admitted with altered mental status, respiratory failure, acute kidney i njury, treated, recovered. The patient extubated. Physical Examination: Vital Signs: Blood pressure 140/87, pulse 111. Chest: Clear to auscultation. Heart: S1, S2. Regular. Abdomen: Soft, nontender. Extremities: Trace edema. Laboratory Data: H and H 11.6/34. Sodium 137, potassium 5.4, bicarb 43, BUN 35, creatinine 0.6, jaimie cium 9.6, magnesium 2.6. Current Medications: The patient on its include: 1.Nicotine patch. 2.Lovenox. 3.Haloperidol. 4.Jevity. 5.Breathing treatment. 6.Solu-Medrol. Assessment And Plan: 1.Acute kidney injury secondary to prerenal, recovered, resolved. 2.Hyperkalemia secondary to tube feeding. I am going to go ahead and change Jevity to Nepro. 3.Renal mass. I do not see with the patient condition the need to work it up for the time being. 4.Hypokalemia, resolved, currently hyper. MA/MODL Voice ID: [id number] Report ID: [id number]
== END 2018-06-01 18:24 | disposition expired | DRG 189 ==
LOC: ER 20:40 → ERHOLD 23:58 → 3RD-ICU 05-22 00:29 → 4TH 05-29 12:40
PROVIDERS: ADMIT Internal Medicine; ATTEND Internal Medicine
DX: J96.00 Acute respiratory failure, unspecified whether with hypoxia or hypercapnia (principal); R65.21 Severe sepsis with septic shock; A41.9 Sepsis, unspecified organism; N17.9 Acute kidney failure, unspecified; E87.0 Hyperosmolality and hypernatremia; E87.2 Acidosis; Z66 Do not resuscitate; J44.9 Chronic obstructive pulmonary disease, unspecified; E87.6 Hypokalemia; I95.9 Hypotension, unspecified; R39.2 Extrarenal uremia; N28.89 Other specified disorders of kidney and ureter; E83.39 Other disorders of phosphorus metabolism; E83.42 Hypomagnesemia; I10 Essential (primary) hypertension; M81.0 Age-related osteoporosis without current pathological fracture; F17.200 Nicotine dependence, unspecified, uncomplicated
CPT/HCPCS: 31500; 36415; 51702; 70450; 71045; 71250; 72125; 76770; 80048; 80053; 80069; 80076; 80202; 81003; 81015; 82533; 82550; 82553; 82805; 82962; 83605; 83690; 83735; 83935; 84132; 84145; 84300; 84443; 84484; 84550; 85025; 85027; 85610; 85730; 87040; 87070; 87077; 87086; 87088; 87186; 87205; 87493; 87804; 93005; 93306; 94002; 94003; 94640; 94660; 94760; 99291; 99292; J0330; J1120; J1265; J1630; J1650; J2543; J2704; J2920; J2930; J3010; J3370; J7030; J7060; J7605